=== PATIENT | male | born 1965 | race Caucasian/White ===

== ENCOUNTER → 2017-02-28 | Outpatient (CLI) | payer OTHER | END | disposition home or self-care (01) | LOC: CFH 09:57 | PROVIDERS: ATTEND Physician Assistant | DX: K76.89 Other specified diseases of liver (principal); K82.4 Cholesterolosis of gallbladder; B18.2 Chronic viral hepatitis C | CPT/HCPCS: 76700 ==

== ENCOUNTER 2019-12-09 12:11 | Day surgery (SDC) | payer OTHER ==
[~2019-12-09] VITALS: Ht 175.3 cm; Wt 86.0 kg
[~2019-12-09 12:11] MED LIST: Albuterol Inhaler INH; LISI-167 PO; ONDA4TAB7 PO; OXYC-306 PO
[2019-12-09] MEDS ORDERED: LACTATED RINGERS 1,000 ML IV SCH (12:31)
[2019-12-09 12:39] VITALS: BP 143/87
[2019-12-09] MEDS ORDERED: CHLORHEXIDINE 15 ML UDC MM ONE (13:30)
[2019-12-09] MEDS ORDERED: FENTANYL PF 100 MCG/2ML ONE ×3 (15:02→17:15)
[2019-12-09] MEDS ORDERED: DEXAMETHASONE 4 MG/ML, 1ML ONE (15:06)
[2019-12-09] MEDS ORDERED: PROPOFOL 10 MG/ML, 20ML ONE (15:06)
[2019-12-09] MEDS ORDERED: SUCCINYLCHOLINE 20 MG/ML, 10ML ONE (15:15)
[2019-12-09] MEDS ORDERED: ROCURONIUM 10 MG/ML,10ML ONE (15:15)
[2019-12-09] MEDS ORDERED: OMNIPAQUE 350 MG/ML, 50 ML BOTTLE ONE (15:45)
[2019-12-09] MEDS ORDERED: CIPROFLOXACIN 400MG/200ML PMX ONE (15:58)
[2019-12-09] MEDS ORDERED: ONDANSETRON 2MG/ML, 2ML ONE (16:44)
[2019-12-09] MEDS ORDERED: LABETALOL 5MG/ML, 20ML IV PRN (17:00)
[2019-12-09] MEDS ORDERED: PROMETHAZINE 12.5 MG SUPP PR PRN (17:00)
[2019-12-09] MEDS ORDERED: FENTANYL PF 100 MCG/2ML IV PRN ×2 (17:00→17:30)
[2019-12-09] MEDS ORDERED: ACETAMINOPHEN 325 MG TABLET PO PRN (17:00)
[2019-12-09] MEDS ORDERED: PROMETHAZINE 25 MG/ML, 1ML IV PRN (17:00)
[2019-12-09] MEDS ORDERED: HALOPERIDOL 5 MG/ML IV PRN (17:00)
[2019-12-09] MEDS ORDERED: hydrALAzine 20 MG/ML, 1ML IV PRN (17:00)
[2019-12-09] MEDS ORDERED: EPHEDRINE 50 MG/ML, 1ML IVPush PRN (17:00)
[2019-12-09] MEDS ORDERED: ALBUTEROL SULFATE 2.5 MG/3 ML NPPB PRN (17:00)
[2019-12-09] MEDS ORDERED: MIDAZOLAM 1 MG/ML, 2ML IV PRN (17:00)
[2019-12-09] MEDS ORDERED: HYDROmorphone 2 MG/ML, 1ML IVPush PRN (17:00)
[2019-12-09] MEDS ORDERED: MEPERIDINE/PF 25MG/ML,1ML IVPush PRN (17:00)
[2019-12-09] MEDS ORDERED: ONDANSETRON ODT 8 MG PO PRN (17:00)
[2019-12-09] MEDS ORDERED: OXYcodone 5 MG/5 ML ORAL.SOL UDC PO PRN (17:00)
[2019-12-09] MEDS ORDERED: ONDANSETRON 2MG/ML, 2ML IV PRN (17:00)
[2019-12-09] MEDS ORDERED: DIAZEPAM 5 MG/ML, 2ML IVPush PRN (17:00)
[2019-12-09] MEDS ORDERED: INDOMETHACIN 50 MG SUPP.RECT ONE (17:03)
[2019-12-09] MEDS ORDERED: INDOMETHACIN 50 MG SUPP.RECT PR ONE (17:30)
[2019-12-09] MEDS ORDERED: PROMETHAZINE 25 MG/ML, 1ML ONE (17:31)
[2019-12-09] MEDS ORDERED: OXYcodone 5 MG/5 ML ORAL.SOL UDC ONE (18:45)
== END 2019-12-09 19:02 | disposition home or self-care (01) ==
LOC: OR 12:11
PROVIDERS: ATTEND Internal Medicine Gastroenterology
DX: K86.89 Other specified diseases of pancreas (principal); C25.0 Malignant neoplasm of head of pancreas; K29.50 Unspecified chronic gastritis without bleeding; K83.1 Obstruction of bile duct; K76.89 Other specified diseases of liver; J45.909 Unspecified asthma, uncomplicated; I10 Essential (primary) hypertension; Z79.899 Other long term (current) drug therapy; Z88.0 Allergy status to penicillin; Z91.048 Other nonmedicinal substance allergy status; Z90.49 Acquired absence of other specified parts of digestive tract; Z98.890 Other specified postprocedural states
CPT/HCPCS: 43239; 43242; 43274; 74330; 88172; 88173; 88305; 88307; C1769; C1894; C2625; J0330; J0744; J1100; J2405; J2550; J2704; J3010; Q9967

== ENCOUNTER 2021-01-26 18:35 | Emergency (ER) | payer OTHER ==
[~2021-01-26] VITALS: Ht 175.3 cm; Wt 80.0 kg
[~2021-01-26 18:35] MED LIST changes: -OXYC-306 PO; +OXYC1TAB17 PO
[2021-01-26 19:24] LABS: MEAN CORPUSCULAR HEMOGLOBIN 28.6 pg (27.5-34.5); MEAN CORPUSCULAR HGB CONC 32.9 g/dL (33.2-36.2); MEAN PLATELET VOLUME 8.2 fL (7.4-10.4); PLATELET COUNT 135 x10^3/uL (130-400); RED BLOOD COUNT 4.05 x10^6/uL (4.38-5.82); RED CELL DISTRIBUTION WIDTH 17.6 % (9.4-14.8)
[2021-01-26 19:30] LABS: ALANINE AMINOTRANSFERASE 63 U/L (12-78); ALBUMIN 3.4 g/dL (3.4-5.0); ANION GAP 6 mmol/L (5-15); CALCIUM 8.5 mg/dL (8.5-10.1); CHLORIDE 102 mmol/L (98-107); CREATININE 0.92 mg/dL (0.7-1.3)
[2021-01-26] MEDS ORDERED: SODIUM CHLORIDE 0.9% 1,000ML IVBOLUS ONE (19:30)
[2021-01-26 19:32] LABS: ALKALINE PHOSPHATASE 102 U/L (45-117); BILIRUBIN,TOTAL 0.9 mg/dL (0.2-1.0); TOTAL PROTEIN 7.9 g/dL (6.4-8.2)
[2021-01-26 20:04] LABS: BAND#(MANUAL) 0.15 x10^3/uL; BANDS%(MANUAL) 5 % (0-7); LYMPH#(MANUAL) 0.23 x10^3/uL (1-3.4); LYMPHS% (MANUAL) 8 % (22-44); MONOS#(MANUAL) 0.09 x10^3/uL (0.3-2.7); MONOS% (MANUAL) 3 % (2-9); SEG#(MANUAL) 2.44 x10^3/uL (1.8-6.8); SEGS% (MANUAL) 84 % (42-75)
[2021-01-26 20:05] LABS: ANISOCYTOSIS 1+
[2021-01-26 20:07] LABS: <PLT MORPHOLOGY> NORMAL PLT MORPH
[2021-01-26 20:08] LABS: <PLATELET ESTIMATE> ADEQUATE
[2021-01-26 21:05] LABS: MICROSCOPIC NOT IND
[2021-01-26 21:10] VITALS: BP 119/75
== END 2021-01-26 21:51 | disposition home or self-care (01) ==
LOC: ED 20:36
DX: R50.9 Fever, unspecified (principal); C25.9 Malignant neoplasm of pancreas, unspecified; Z92.21 Personal history of antineoplastic chemotherapy
CPT/HCPCS: 36415; 71045; 80053; 81003; 83605; 83690; 84145; 85025; 87040; 99284; J7030